=== PATIENT | male | born 1960 ===

== ENCOUNTER 2018-04-01 12:56 | Day surgery (SDC) | payer BC ==
[~2018-04-01] VITALS: Ht 180.3 cm; Wt 89.8 kg
[~2018-04-01 12:56] MED LIST: MULTI VITAMIN1 EACH PO
--- NOTE | 2018-04-01 13:43 | NUR ---
04/01/18 1343 Neva Moran 1 IV MISS IN [facility] BY [facility]O VALVE 1 GOOD IV IN [facility] BY [facility]ILO PT TOW
== END 2018-04-01 15:45 | disposition home or self-care (01) ==
LOC: ORSCSDS 12:56 → EDSEX 14:15 → ORSCSDS 15:45
PROVIDERS: Surgery
PROC: 0DJD8ZZ Inspection of Lower Intestinal Tract, Via Natural or Artificial Opening Endoscopic (ICD-10-PCS; principal; 2018-04-01 14:15)
DX: Z12.11 Encounter for screening for malignant neoplasm of colon (principal)
CPT/HCPCS: J7120